=== PATIENT | male | born 1935 | race Caucasian/White ===

== ENCOUNTER 2019-08-17 10:09 | Day surgery (SDC) | payer MEDICARE, BC ==
[2019-08-17] VITALS (8 sets, daily range): BP systolic 131–146; BP diastolic 57–89
[~2019-08-17] VITALS: Ht 175.3 cm; Wt 74.8 kg
[~2019-08-17 10:09] MED LIST: Proparacaine 0.5% Opth Soln 15ml RIGHT EYE ONE; Proparacaine 0.5% Opth Soln 15ml RIGHT EYE SCH
[2019-08-17] MEDS ORDERED: EPINEPHrine 1mg/1ml Amp ONE (10:21)
[2019-08-17] MEDS ORDERED: Dexamethasone 4mg/ml vial ONE (10:22)
[2019-08-17] MEDS ORDERED: Kenalog-40 1ml Vial ONE (10:22)
[2019-08-17] MEDS ORDERED: Pred Forte 1% Opth Susp 1ml ONE (10:22)
[2019-08-17] MEDS ORDERED: Polysporin Opth Oint 3.5gm ONE (10:22)
[2019-08-17] MEDS ORDERED: Povidone-Iodine 5% opth solution ONE (10:22)
[2019-08-17] MEDS ORDERED: BSS 500ml btl ONE (10:22)
[2019-08-17] MEDS ORDERED: Lidocaine 2% MPF 5ml Vial INJ ONE (10:22)
[2019-08-17] MEDS ORDERED: BSS 15ml BTL ONE (10:22)
[2019-08-17] MEDS ORDERED: Goniotaire 2.5% Opth Soln - 15ml ONE (10:22)
[2019-08-17] MEDS ORDERED: Acetylcholine Injection (OR) ONE (10:23)
[2019-08-17] MEDS ORDERED: Tetracaine 0.5% Opth 4ml Soln ONE (10:23)
[2019-08-17] MEDS ORDERED: Sodium Hyaluronate 10 mg/ml 0.85ml ONE ×2 (10:23→13:05)
[2019-08-17] MEDS ORDERED: Bupivacaine 0.75% 30ml vial INJ ONE (10:23)
[2019-08-17] MEDS ORDERED: Indocyanine Green 25mg Inj INJ ONE (10:30)
[2019-08-17] MEDS ORDERED: Tropicamide 1% Opth 15ml Soln ONE (10:38)
[2019-08-17] MEDS ORDERED: Proparacaine 0.5% Opth Soln 15ml ONE (10:38)
[2019-08-17] MEDS ORDERED: Cyclopentolate 1% Opth Sol 2ml ONE (10:38)
[2019-08-17] MEDS ORDERED: Phenylephrine 2.5% Op 2ml Soln ONE (10:38)
--- NOTE | 2019-08-17 11:00 | NUR ---
IV LR WAS STARTED BY DIGNA MATA.OPS RN. NO S/S OF INFILTRATION.
[2019-08-17] MEDS: Phenylephrine 2.5% Op 2ml Soln RIGHT EYE SCH ×3 (11:06→11:29)
[2019-08-17] MEDS: Tropicamide 1% Opth 15ml Soln RIGHT EYE SCH ×3 (11:06→11:29)
[2019-08-17] MEDS: Cyclopentolate 1% Opth Sol 2ml RIGHT EYE SCH ×3 (11:06→11:29)
[2019-08-17] MEDS ORDERED: ASPIR 8181 MG ORAL (11:22)
[2019-08-17] MEDS ORDERED: AMLODIPINE BES2.5 MG ORAL (11:22)
[2019-08-17] MEDS ORDERED: BENAZEPRIL HCL40 MG ORAL (11:22)
[2019-08-17] MEDS ORDERED: ATORVASTATIN CA40 MG ORAL (11:22)
[2019-08-17] MEDS ORDERED: Propofol 200mg/20ml IV ONE (12:00)
[2019-08-17] MEDS ORDERED: Sterile Water Irrig 1000ml IRRIG ONE (12:00)
[2019-08-17] MEDS ORDERED: LR 1000ml ONE (12:00)
[2019-08-17] MEDS ORDERED: NS Irrig 1000ml ONE (12:00)
[2019-08-17] MEDS ORDERED: Lidocaine 1% MPF 10mg/ml 5ml ONE (12:00)
--- NOTE | 2019-08-17 12:14 | Pre-Procedure Note/Attestation ---
Pre-Procedure Note/Attestation Complete Prior to Procedure Planned Procedure: right Procedure Narrative: Dislocated IOL and Sommerings ring OD Indications for Procedure Pre-Operative Diagnosis: Dislocated IOL and Sommerings ring OD Attestation I attest that I discussed the nature of the procedure; its benefits; risks and complications; and alternatives (and the risks and benefits of such alternatives ), prior to the procedure, with the patient (or the patient's legal corporate sales representative). I attest that, if there was a reasonable possibility of needing a blood transfusion, the patient (or the patient's legal corporate sales representative) was given the [facility] standardized written summary, pursuant to the Lázaro Lance Blood Safety Act ([place] Health and Safety Code # 1645, as amended). I attest that I re-evaluated the patient just prior to the surgery and that there has been no change in the patient's H&P, except as documented below: John Collins M.D., MD Aug 17, 2019 12:14
--- NOTE | 2019-08-17 12:16 | Operative Note - PDOC ---
Operative Note Operative Note Chief Complaint: Vision loss OD Pre-op Diagnosis: Dislocated IOL and Sommerings ring OD Post-op Diagnosis: same as pre-op Anesthesia: local Specimen: none Complications: none Condition: stable Estimated Blood Loss: none Drains: none Implant(s) used?: No Indications for Procedure Indications for the procedure: The patient has dislocated IOL and dislodged Sommerings ring material; he presents today for surgery after review of the risks, benefits, alternative and signing informed consent into the medical chart; details of surgery were reviewed with the patient prior to surgery. Description of Procedure Procedure performed: The patient was met in the pre-op area. Informed consent was reviewed the eye was marked and dilated. The patient was transferred to the operative suite, where cardiopulmonary monitoring was established and RB anesthetic was administered without complications. The eye was prepped and draped in sterile ophthalmic fashion. Under microscopic visualization the 23 gauge infusion line was placed 3.5 millimeters inferotemporally. After visualization of the tip in the vitreous cavity, the infusion line was turned on. The superotemporal and superonasal cannulas were placed. The anterior prolapsed vitreous and dislodged lens fragments were cleared with the vitreous cutter. Under BIOM visualization, peripheral and core vitrectomy was performed. Posterior vitreous separation was induced. The dislocated lens was cleared of the Sommerings ring material; dense material was removed with phaco. The IOL was then moved into the AC. A corneal wound was created and healon was injected. The IOL was cut and removed. The corneal wound was sutured. Further vitrectomy was performed and sclera depression was performed. Inspection of the periphery revealed no iatrogenic retinal tears; endolaser was applied to prevent the risk of retinal detachment. Air fluid exchange was performed. Subconjunctival vancomycin and dexamethasone were administered. The lid speculum was removed. The eye was cleaned of prep and drape. Maxitrol ointment was applied and a pressure patch was placed. The patient was turned over to the anesthesia team who transferred her in stable condition to the PACU. John Collins M.D., MD Aug 17, 2019 12:16
[2019-08-17] MEDS ORDERED: LR 1000ml 1,000 ML IVLG SCH (12:17)
--- NOTE | 2019-08-17 12:18 | Anethesia Preoperative Eval ---
Anesthesia Pre-op PMH/ROS General Date of Evaluation: Aug 17, 2019 Time of Evaluation: 12:01 Anesthesiologist: Greta ASA Score: ASA 3 Mallampati Score Class I : Soft palate, uvula, fauces, pillars visible Class II: Soft palate, uvula, fauces visible Class III: Soft palate, base of uvula visible Class IV: Only hard plate visible Mallampati Classification: Class III Surgeon: Karina Diagnosis: Dislocated Lense Surgical Procedure: Vitrectomy OD Anesthesia History: none Family History: no anesthesia problems Allergies: Coded Allergies: No Known Allergies (Unverified , 08/15/19) Medications: see eMAR Patient NPO?: Yes Past Medical History Cardiovascular: Reports: HTN, other - HL Endocrine: Reports: DM Hematology/Immune: Reports: other - Skin CA Multiple PSxH Narrative: Eye Sx Anesthesia Pre-op Phys. Exam Physician Exam Last Vital Signs Date Time Temp Pulse Resp B/P (MAP) Pulse Ox O2 Delivery O2 Flow Rate FiO2 08/17/19 11:14 96.7 66 20 143/89 99 Room Air Constitutional: NAD Neurologic: CN 2-12 intact Cardiovascular: RRR Respiratory: CTA Gastrointestinal: S/NT/ND Airway Exam Mallampati Score: Class III MO: full ROM: limited Teeth: missing, intact Anesthesia Pre-op A/P Risk Assessment & Plan Assessment: ASA 3 Plan: GA Status Change Before Surgery: Shadi Salazar MD Aug 17, 2019 12:18
[2019-08-17] MEDS ORDERED: Meperidine 50mg/ml Inj(FOR RIGORS ONLY) IVP PRN (12:30)
[2019-08-17] MEDS ORDERED: DiphenhydrAMINE 50mg/ml Inj IVP PRN (12:30)
[2019-08-17] MEDS ORDERED: Atropine Sulfate 0.4mg/ml inj IVP PRN (12:30)
[2019-08-17] MEDS ORDERED: HYDROcodone/Acetamin 7.5/325 tab ORAL PRN (12:30)
[2019-08-17] MEDS ORDERED: HYDROcodone/Acetamin 5/325 tab ORAL PRN (12:30)
[2019-08-17] MEDS ORDERED: Metoclopramide 10mg/2ml Inj IVP PRN (12:30)
[2019-08-17] MEDS ORDERED: Midazolam 2mg/2ml Inj IVP PRN (12:30)
[2019-08-17] MEDS ORDERED: Hydromorphone 0.5mg/0.5ml inj IVP PRN (12:30)
[2019-08-17] MEDS ORDERED: LORazepam Inj 2mg/ml 1ml IV PRN (12:30)
[2019-08-17] MEDS ORDERED: Ketorolac 30mg Inj IV PRN ×2 (12:30)
[2019-08-17] MEDS ORDERED: oxyCODONE HCL/Acetaminophen 5/325mg ORAL PRN (12:30)
[2019-08-17] MEDS ORDERED: fentaNYL 100 mcg/2 mL IV PRN (12:30)
--- NOTE | 2019-08-17 12:30 | Immediate Post-Op Evaluation ---
Immediate Post-Op Evalulation Immediate Post-Op Evalulation Procedure: Vitrectomy OD Date of Evaluation: Aug 17, 2019 Time of Evaluation: 13:49 IV Fluids: 400 LR Blood Products: 0 Estimated Blood Loss: 1 Urinary Output: 0 Blood Pressure Systolic: 146 Blood Pressure Diastolic: 75 Pulse Rate: 69 Respiratory Rate: 16 O2 Sat by Pulse Oximetry: 100 Temperature (Fahrenheit): 98.2 Pain Score (1-10): 1 Nausea: No Vomiting: No Complications 0 Patient Status: awake, reacts, patent, none Hydration Status: adequate Shadi Hernandes MD Aug 17, 2019 12:30
--- NOTE | 2019-08-17 12:30 | 48 Hour Post Anesthesia Eval ---
Post Anesthesia Evaluation Procedure: Vitrectomy OD Date of Evaluation: Aug 17, 2019 Time of Evaluation: 15:54 Blood Pressure Systolic: 147 0: 76 Pulse Rate: 64 Respiratory Rate: 18 Temperature (Fahrenheit): 98.2 O2 Sat by Pulse Oximetry: 99 Airway: patent Nausea: No Vomiting: No Pain Intensity: 1 Hydration Status: adequate Cardiopulmonary Status: Stable Mental Status/LOC: patient returned to baseline Follow-up Care/Observations: 0 Post-Anesthesia Complications: 0 Follow-up care needed: ready to discharge Shadi Hernandes MD Aug 17, 2019 12:30
[2019-08-17] MEDS ORDERED: Labetalol 5mg/ml 20ml vial IV PRN (14:00)
== END 2019-08-17 15:00 | disposition home or self-care (01) ==
LOC: EDBD 10:09 → SUR 10:09
DX: H54.7 Unspecified visual loss (principal); T85.22XA Displacement of intraocular lens, initial encounter; X58.XXXA Exposure to other specified factors, initial encounter; Y92.9 Unspecified place or not applicable; Z90.89 Acquired absence of other organs; I10 Essential (primary) hypertension; E78.00 Pure hypercholesterolemia, unspecified; Z79.899 Other long term (current) drug therapy
CPT/HCPCS: 66986; 82962; J1100; J2704; J3301; J3370; J3490; 94003; 94150